=== PATIENT | female | born 1950 | race Caucasian/White ===

== ENCOUNTER 2016-03-16 21:26 | Emergency (ER) | payer MEDICARE, OTHER | END 2016-03-16 21:58 | disposition left against medical advice (07) | LOC: ER 21:26 | DX: Z53.21 Procedure and treatment not carried out due to patient leaving prior to being seen by health care provider (principal) ==

== ENCOUNTER 2016-12-16 11:51 | Emergency (ER) | payer MEDICARE, OTHER ==
--- NOTE | 2016-12-16 12:46 | ER Document Report ---
HPI - HPI Patient complains to provider of: Right-sided back pain, and right foot pain Onset: Other Onset/Duration: Sudden Quality of pain: Throbbing Severity: Severe Pain Level: 5 Context: Patient states that on Monday she was lifting a box and when she twisted at the waist to lay down she started experiencing right-sided back pain. Pain does not radiate down her legs. Patient denies loss of control of bowels or bladder. Patient stubbed her right toe last night in a dark room. Complains of pain and swelling. Did not fall and hit head. Associated Symptoms: None Exacerbated by: Movement Relieved by: Remaining still Similar symptoms previously: Yes Recently seen / treated by doctor: No - ROS ROS below otherwise negative: Yes Systems Reviewed and Negative: Yes All other systems reviewed and negative - CONSTITUTIONAL Constitutional: DENIES: Fever - EENT EENT: DENIES: Congestion - NEURO Neurology: DENIES: Headache - CARDIOVASCULAR Cardiovascular: DENIES: Chest pain - RESPIRATORY Respiratory: DENIES: Trouble Breathing - GASTROINTESTINAL Gastrointestinal: DENIES: Abdominal Pain - URINARY Urinary: DENIES: Dysuria - REPRODUCTIVE Reproductive: DENIES: : - MUSCULOSKELETAL Musculoskeletal: REPORTS: Extremity pain - Right fifth toe, Back Pain - Right side Past Medical History - General Information source: Patient - Social History Smoking Status: Never Smoker Frequency of alcohol use: Occasional Drug Abuse: None Lives with: Family Family History: Reviewed & Not Pertinent, Other - Negative for premature coronary artery disease, mom lived to 90, dad lived to 89 Patient has suicidal ideation: No Patient has homicidal ideation: No Pulmonary Medical History: Reports: Hx Asthma Psychiatric Medical History: Reports: Hx Anxiety, Hx Depression Past Surgical History: Reports: Hx Abdominal Surgery, Hx Hysterectomy - Immunizations Immunizations up to date: Yes Hx Diphtheria, Pertussis, Tetanus Vaccination: Yes Vertical Provider Document - CONSTITUTIONAL Agree With Documented VS: Yes Exam Limitations: No Limitations General Appearance: WD/WN, No Apparent Distress - INFECTION CONTROL TRAVEL OUTSIDE OF THE [place] IN LAST 30 DAYS: No - HEENT HEENT: Atraumatic, Normocephalic - RESPIRATORY Respiratory: Breath Sounds Normal, No Respiratory Distress O2 Sat by Pulse Oximetry: 98 - CARDIOVASCULAR Cardiovascular: Regular Rate, Regular Rhythm - GI/ABDOMEN Gastrointestinal: Abdomen Soft, Abdomen Non-Tender - BACK Notes: Nontender L-spine, patient does have right-sided paraspinal muscle tenderness on palpation. Pain reproduced with range of motion. No pain with leg raises. - MUSCULOSKELETAL/EXTREMETIES Musculoskeletal/Extremeties: Edema - Right fifth toe. negative: Eccymosis - NEURO Level of Consciousness: Awake, Alert, Appropriate - DERM Integumentary: Warm, Dry Course - Re-evaluation Re-evalutation: 12/16/16 13:12 X-rays negative and discussed with patient. - Vital Signs Vital signs: Temp Pulse Resp BP Pulse Ox 98.4 F 95 132/98 H 98 12/16/16 12:22 12/16/16 12:22 12/16/16 12:22 12/16/16 12:22 Discharge - Discharge Clinical Impression: Strain of muscle, fascia and tendon of lower back, initial encounter Right-sided back pain Qualifiers: Back pain location: low back pain Chronicity: acute Sciatica presence: without sciatica Qualified Code(s): M54.5 - Low back pain Condition: Good Disposition: HOME, SELF-CARE Additional Instructions: Ibuprofen for pain Muscle relaxers as prescribed ice packs to right toe, Keep elevated Follow-up with your doctor next week for recheck Return as needed Prescriptions: Cyclobenzaprine HCl [Flexeril 5 mg Tablet] 5 mg PO TID #15 tablet
--- NOTE | 2016-12-16 13:07 | RADIOLOGY REPORT (SQ) ---
EXAM DESCRIPTION: FOOT RIGHT COMPLETE COMPLETED DATE/TIME: 12/16/2016 12:56 pm REASON FOR STUDY: injury COMPARISON: None. NUMBER OF VIEWS: Three views. TECHNIQUE: AP, lateral and oblique radiographic images acquired of the right foot. LIMITATIONS: None. FINDINGS: MINERALIZATION: Normal. BONES: No acute fracture or dislocation. There is a bunion. Small plantar calcaneal spur is present . JOINTS: No effusions. SOFT TISSUES: No soft tissue swelling. No foreign body. OTHER: No other significant finding. IMPRESSION: No acute abnormality is seen. Findings as described. TECHNICAL DOCUMENTATION: JOB ID: [id number] [employer]- All Rights Reserved
[2016-12-16 13:55] VITALS: BP 130/80
== END 2016-12-16 13:37 | disposition home or self-care (01) ==
LOC: ER 11:51
DX: S39.012A Strain of muscle, fascia and tendon of lower back, initial encounter (principal); M79.671 Pain in right foot; X50.0XXA Overexertion from strenuous movement or load, initial encounter; W22.09XA Striking against other stationary object, initial encounter
CPT/HCPCS: 99283

== ENCOUNTER → 2017-03-29 | Outpatient (CLI) | payer MEDICARE, OTHER ==
--- NOTE | 2017-03-29 12:58 | WOMENS IMAGING REPORT ---
EXAM DESCRIPTION: BILAT SCREENING MAMMO W/CAD COMPLETED DATE/TIME: 03/29/2017 11:20 am REASON FOR STUDY: SCREENING MAMMO Z12.31 ENCNTR SCREEN MAMMOGRAM FOR MALIGNANT NEOPLASM OF RAZ COMPARISON: None. TECHNIQUE: Standard craniocaudal and mediolateral oblique views of each breast recorded using digita l acquisition. LIMITATIONS: None. FINDINGS: No masses, calcifications or architectural distortion. No areas of suspicion. Read with the assistance of CAD. .[facility] - R2 Cenova Version 1.3 .[facility] Imaging - R2 Cenova Version 1.3 .[facility] - R2 Cenova Version 2.4 .[facility] - R2 Cenova Version 2.4 .[facility] - R2 Beam Department Supervisor Version 9.2 IMPRESSION: NORMAL MAMMOGRAM. BIRADS 1. BREAST DENSITY: b. There are scattered areas of fibroglandular density. BIRAD: 1 NEGATIVE RECOMMENDATION: ROUTINE SCREENING COMMENT: The patient has been notified of the results by letter per SA requirements. Additional no tification policies are in place for contacting patient with suspicious or incomplete findings. Quality ID #[id number]: The [employer] recommends an annual screening mammogram for women aged 40 years or over. This facility utilizes a reminder system to ensure that all patients receive reminder letters, and/or direct phone calls for appointments. This includes reminders for routine scr eening mammograms, diagnostic mammograms, or other Breast Imaging Interventions when appropriate. Th is patient will be placed in the appropriate reminder system. The [employer] ([employer]) has developed recommendations for screening MRI of the breast s in certain patient populations, to be used in conjunction with mammography. Breast MRI surveillanc e may be appropriate for women with more than 20% lifetime risk of developing breast cancer as deter mined by genetic testing, significant family history of the disease, or history of mantle radiation f or Hodgkins Disease. ACR Practice Guidelines 2008. TECHNICAL DOCUMENTATION: FINDING NUMBER: (1) ASSESSMENT: (1) JOB ID: [id number] [employer]- All Rights Reserved
== END ==
LOC: WI 10:56
PROVIDERS: ATTEND Physician Assistant Medical
DX: Z12.31 Encounter for screening mammogram for malignant neoplasm of breast (principal)
CPT/HCPCS: 77067

== ENCOUNTER 2017-06-26 13:40 | Emergency (ER) | payer MEDICARE ==
[2017-06-26] MEDS ORDERED: IPRATROPIUM/ALBUTEROL 0.5-2.5 MG/3 ML AMPUL NEB ONE (15:07)
[2017-06-26] MEDS ORDERED: METHYLPREDNISOLONE INJ 125 MG/2 ML SDV IM ONE (15:07)
--- NOTE | 2017-06-26 15:13 | ER Document Report ---
ED General - General Chief Complaint: Flu Symptoms Stated Complaint: COUGH/FEVER Time Seen by Provider: 06/26/17 15:06 Mode of Arrival: Ambulatory Information source: Patient TRAVEL OUTSIDE OF THE [place] IN LAST 30 DAYS: No - HPI Notes: 66 yr old female with a hx of asthma and seasonal allergies presents today with c/o chills, felling "run-down", productive cough x 4 days. Denies any cp, sob, n /v/d. tried otc advil with some relief. cough is productive in nature. worse with time, nothing makes better. unable to see her pcp today. pain is 5/10, throbbing. decreased eating, but is drinking. Denies chest pain,palpitations, shortness of breath, dyspnea, nausea, vomiting, diarrhea, abdominal pain, hematuria, blurred vision, double vision, loss of vision, speech changes, LH, dizziness, syncope, headaches, wheezing, ST, URI, neck pain, weakness, bowel or bladder dysfunction, saddle anesthesia, numbness or tingling in bilateral upper or lower extremities equally, muscle paralysis, weakness in bilateral upper or lower extremities equally or rash. Denies IV drug use. - Related Data Allergies/Adverse Reactions: amoxicillin [Amoxicillin] Allergy (Verified 12/16/16 12:19) Sulfa (Sulfonamide Antibiotics) Allergy (Verified 12/16/16 12:19) Past Medical History - General Information source: Patient - Social History Smoking Status: Never Smoker Family History: Reviewed & Not Pertinent, Other - Negative for premature coronary artery disease, mom lived to 90, dad lived to 89 Pulmonary Medical History: Reports: Hx Asthma Renal/ Medical History: Denies: Hx Peritoneal Dialysis Psychiatric Medical History: Reports: Hx Anxiety, Hx Depression Past Surgical History: Reports: Hx Abdominal Surgery, Hx Hysterectomy - Immunizations Immunizations up to date: Yes Hx Diphtheria, Pertussis, Tetanus Vaccination: Yes Review of Systems - Review of Systems Constitutional: See HPI EENT: No symptoms reported Cardiovascular: No symptoms reported Respiratory: See HPI Gastrointestinal: No symptoms reported Genitourinary: No symptoms reported Female Genitourinary: No symptoms reported Musculoskeletal: No symptoms reported Skin: No symptoms reported Hematologic/Lymphatic: No symptoms reported Neurological/Psychological: No symptoms reported Physical Exam - Vital signs Vitals: Temp Pulse Resp BP Pulse Ox 98.4 F 89 16 126/72 H 98 06/26/17 14:15 06/26/17 14:15 06/26/17 14:15 06/26/17 14:15 06/26/17 14:15 - Notes Notes: PHYSICAL EXAMINATION: GENERAL: Well-appearing, well-nourished and in no acute distress. HEAD: Atraumatic, normocephalic. EYES: Pupils equal round and reactive to light, extraocular movements intact, conjunctiva are normal. ENT: TM intact with bilateral serous effusion, no erythema. Nares boggy bilaterally, oropharynx with erythema without exudates. Moist mucous membranes. NECK: Normal range of motion, supple without lymphadenopathy LUNGS: wheezing in BUE lobes equally, after breathing treatment, BS clear in all lobes blaterally and equally. HEART: Regular rate and rhythm without murmurs ABDOMEN: Soft, nontender, nondistended abdomen. No guarding, no rebound. No masses appreciated. Female : deferred Musculoskeletal: Normal range of motion, no pitting or edema. No cyanosis. NEUROLOGICAL: Cranial nerves grossly intact. Normal speech, normal gait. Normal sensory, motor exams PSYCH: Normal mood, normal affect. SKIN: Warm, Dry, normal turgor, no rashes or lesions noted. Course - Re-evaluation Re-evalutation: Presentation of a pt complaining of 66 yr old asthmatic female with concerns of pneumonia presents for evaluation of her fever and cough. no rapid progression of symptoms, systemic symptoms including weight loss, history of recent bacterial infection, bilateral symptoms, numbness, weakness, difficulty walking, urinary retention or bowel incontinence, personal history of cancer, immunosuppression, diabetes, known AAA , or history of IV drug use. rechecked the patient who is resting comfortably. Based on history and physical , I have a very low suspicion concerning of an etiology of pain including epidural compression syndrome, spinal infection, transverse myelitis, malignancy , abdominal aortic aneurysm, renal colic, acute lower extremity claudication, neurogenic claudication, ankylosing spondylitis, or other intra-abdominal process. on re-exam, patient is symptomatically improved. CXR NAD per RAD. Her breathing treatment resolved her wheezing. At this time will discharge with return precautions and follow-up recommendations. Verbal discharge instructions given a the bedside and opportunity for questions given. Medication warnings reviewed. Patient is in agreement with this plan and has verbalized understanding of return precautions and the need for primary care follow-up in the next 24-72 hours. After performing a Medical Screening Examination, I estimate there is LOW risk for ACUTE CORONARY SYNDROME, PULMONARY EMBOLI, RESPIRATORY FAILURE, SEPSIS OR MENINGITIS, thus I consider the discharge disposition reasonable. I have reevaluated this patient multiple times and no significant life threatening changes are noted. The patient and I have discussed the diagnosis and risks, and we agree with discharging home with close follow-up. We also discussed returning to the Emergency Department immediately if new or worsening symptoms occur. We have discussed the symptoms which are most concerning (e.g., changing or worsening pain, trouble swallowing or breathing, neck stiffness, fever) that necessitate immediate return. 06/26/17 16:03 - Vital Signs Vital signs: Temp Pulse Resp BP Pulse Ox 98.4 F 89 16 126/72 H 98 06/26/17 14:15 06/26/17 14:15 06/26/17 14:15 06/26/17 14:15 06/26/17 14:15 Discharge - Discharge Clinical Impression: Acute bacterial bronchitis Condition: Good Disposition: HOME, SELF-CARE Instructions: Fever ([facility]), Bronchitis ([facility]) Additional Instructions: Bronchitis You have acute bronchitis. This disease is an infection or inflammation of the air passageways in your lungs. Symptoms usually include cough, low grade fever, shortness of breath, and wheezing. The cough usually persists for a couple of weeks. Most cases of bronchitis get better without antibiotics. We prescribe antibiotics when we believe bacteria are damaging your airways, or if there's high risk the bronchitis will worsen into pneumonia. Increase your fluid intake. A cool mist humidifier may make your lungs more comfortable. An expectorant (cough medicine that loosens phlegm) can help. If you smoke, STOP!!! Recovery from bronchitis can be somewhat slow, but you should see improvement within a day or two. Repeated episodes of bronchitis may result in lung damage -- for example, chronic bronchitis, recurrent pneumonias, or emphysema. Call the doctor if you develop increasing fever, shortness of breath, chest pain, bloody sputum, or otherwise worsen. If you have not improved at all after several days, contact the physician. Return immediately for any new or worsening symptoms. Follow up with primary care provider, call tomorrow to make followup appointment. Prescriptions: Benzonatate [Tessalon Perle 100 mg Capsule] 100 mg PO Q8HP PRN #20 cap PRN Reason: Albuterol Sulfate [Ventolin Hfa] 1 - 2 puff IH Q4 PRN #1 hfa.aer.ad PRN Reason: Azithromycin 250 mg PO DAILY #6 tablet Prednisone 20 mg PO BID #10 tablet Referrals: EUGENIO SYKES MD [Primary Care Provider] - Follow up in 3-5 days
--- NOTE | 2017-06-26 16:02 | RADIOLOGY REPORT (SQ) ---
EXAM DESCRIPTION: CHEST 2 VIEWS COMPLETED DATE/TIME: 06/26/2017 3:53 pm REASON FOR STUDY: cough with fever COMPARISON: 10/26/2015. EXAM PARAMETERS: NUMBER OF VIEWS: two views TECHNIQUE: Digital Frontal and Lateral radiographic views of the chest acquired. RADIATION DOSE: NA LIMITATIONS: none FINDINGS: LUNGS AND PLEURA: No opacities, masses or pneumothorax. No pleural effusion. MEDIASTINUM AND HILAR STRUCTURES: No masses or contour abnormalities. HEART AND VASCULAR STRUCTURES: Heart normal size. No evidence for failure. BONES: No acute findings. HARDWARE: None in the chest. OTHER: No other significant finding. IMPRESSION: NO ACUTE RADIOGRAPHIC FINDING IN THE CHEST. TECHNICAL DOCUMENTATION: JOB ID: [id number] [employer]- All Rights Reserved Reading location - IP/workstation name: [email or web address]
[2017-06-26 16:09] VITALS: BP 132/76
== END 2017-06-26 16:11 | disposition home or self-care (01) ==
LOC: ER 13:40
DX: J20.8 Acute bronchitis due to other specified organisms (principal); B96.89 Other specified bacterial agents as the cause of diseases classified elsewhere; J45.909 Unspecified asthma, uncomplicated; R68.83 Chills (without fever); R05 Cough; R52 Pain, unspecified; Z88.0 Allergy status to penicillin; Z88.2 Allergy status to sulfonamides
CPT/HCPCS: 99283; 96372; 71046; J2930; A9270; J7620

== ENCOUNTER 2018-01-21 10:00 | Emergency (ER) | payer MEDICARE ==
[2018-01-21] MEDS ORDERED: OXYCODONE-ACETAMINOPHEN 5-325 MG TABLET PO ONE (10:33)
--- NOTE | 2018-01-21 10:45 | ER Document Report ---
ED Extremity Problem, Upper - General Chief Complaint: Shoulder Injury Stated Complaint: SHOULDER INJURY Time Seen by Provider: 01/21/18 10:23 Mode of Arrival: Ambulatory Information source: Patient Notes: Patient is 67-year-old female comes emergency room complaining of right shoulder pain. Patient states she was helping her son put up a privacy fence and patient went to let go but the son did not and as she took her arms away he let go in the fence fell on patient's right shoulder knocking her to the ground. This incident occurred yesterday evening. Patient wanted to wait to see if she got better but woke up this morning not able to move her right arm without severe pain. The area of injury is in the right anterior shoulder and is very tender to touch or even move. There was no other injuries no head trauma no loss of consciousness and patient is just here for her shoulder examination and something for pain. She also denies any other medical problems. TRAVEL OUTSIDE OF THE [place] IN LAST 30 DAYS: No - HPI Patient complains to provider of: Injury, Pain, Swelling, Shoulder Onset: Yesterday Recent injury: Yes Where: Home Quality of pain: Sharp, Stabbing, Throbbing Severity of pain: Severe, Persistent, Still present Pain Level: 4 Context: Blow Arm and Shoulder (Right): 1 - Area of pain discomfort and discoloration Associated symptoms: None Exacerbated by: Movement Relieved by: Rest, Positioning Similar symptoms previously: No Recently seen / treated by doctor: No - Related Data Allergies/Adverse Reactions: amoxicillin [Amoxicillin] Allergy (Verified 01/21/18 10:02) Sulfa (Sulfonamide Antibiotics) Allergy (Verified 01/21/18 10:02) Past Medical History - General Information source: Patient - Social History Smoking Status: Never Smoker Cigarette use (# per day): No Chew tobacco use (# tins/day): No Smoking Education Provided: No Frequency of alcohol use: None Drug Abuse: None Family History: Reviewed & Not Pertinent, Other - Negative for premature coronary artery disease, mom lived to 90, dad lived to 89 Patient has suicidal ideation: No Patient has homicidal ideation: No Pulmonary Medical History: Reports: Hx Asthma Renal/ Medical History: Denies: Hx Peritoneal Dialysis Psychiatric Medical History: Reports: Hx Anxiety, Hx Depression Past Surgical History: Reports: Hx Abdominal Surgery, Hx Hysterectomy - Immunizations Immunizations up to date: Yes Hx Diphtheria, Pertussis, Tetanus Vaccination: Yes Review of Systems - Review of Systems Constitutional: No symptoms reported EENT: No symptoms reported Cardiovascular: No symptoms reported Respiratory: No symptoms reported Gastrointestinal: No symptoms reported Genitourinary: No symptoms reported Female Genitourinary: No symptoms reported Musculoskeletal: See HPI, Joint pain, Muscle pain Skin: Change in color Hematologic/Lymphatic: No symptoms reported Neurological/Psychological: No symptoms reported -: Yes All other systems reviewed and negative Physical Exam - Vital signs Vitals: Temp Pulse Resp BP Pulse Ox 97.8 F 98 16 131/76 H 96 01/21/18 10:06 01/21/18 10:06 01/21/18 10:06 01/21/18 10:06 01/21/18 10:06 Interpretation: Normal - Notes Notes: PHYSICAL EXAMINATION: GENERAL: well-nourished and in no acute distress. Uncomfortable appearing HEAD: Atraumatic, normocephalic. EYES: Pupils equal round and reactive to light, extraocular movements intact, conjunctiva are normal. ENT: Nares patent, oropharynx clear without exudates. Moist mucous membranes. NECK: Normal range of motion, supple without lymphadenopathy LUNGS: Breath sounds clear to auscultation bilaterally and equal. No wheezes rales or rhonchi. HEART: Regular rate and rhythm without murmurs Female : deferred Musculoskeletal: Examination of patient's area of complaint is her right anterior shoulder area. Patient has ecchymosis extending from the mid clavicular area extending outward towards the shoulder anteriorly. And from just above the clavicle downward to axillary area. Same area is swollen and very tender to palpate. Examination of the shoulder is difficult because patient will not allow me to palpate the area very deeply and she will not allow me to raise her arm secondary to pain. She has a good microsoft bi developer strength on the right hand she has good flexion extension at the elbow she has no tenderness to palpation on the proximal humeral area. It is when you get to the AC space the patient starts having pain discomfort to palpation. Again she will not allow me to rotate or lift the arm. Patient also has good pulses distally in the radius and the ulna and good cap refill in the nailbeds of the right hand. NEUROLOGICAL: Cranial nerves grossly intact. Normal speech, normal gait. Normal sensory, motor exams PSYCH: Normal mood, normal affect. SKIN: Warm, Dry, normal turgor, no rashes or lesions noted. Course - Vital Signs Vital signs: Temp Pulse Resp BP Pulse Ox 97.8 F 98 16 131/76 H 96 01/21/18 10:06 01/21/18 10:06 01/21/18 10:06 01/21/18 10:06 01/21/18 10:06 Procedures - Immobilization Right Shoulder Pre-Proc Neuro Vasc Exam: Normal Immobilizer type: Shoulder immobilizer Performed by: PCT Post-Proc Neuro Vasc Exam: Normal, Unchanged from pre-exam Alignment checked and good: Yes Notes: 01/21/18 12:03 Patient was placed first in a sling and then was placed in a shoulder immobilizer by the patient primary care nurse practitioner I recheck to make sure it looked good it was in perfect position patient's arm was elevated to perfect angle she had less pain with using the shoulder immobilizer than she did with the sling itself. Checking her cap refill in the fingers while in the shoulder immobilizer so that she had good cap refill and she still had good pulses on the right wrist ulnar and radius. Discharge - Discharge Clinical Impression: Right clavicle fracture Qualifiers: Encounter type: initial encounter Clavicle location: shaft Fracture type: closed Fracture alignment: displaced Qualified Code(s): S42.021A - Displaced fracture of shaft of right clavicle, initial encounter for closed fracture Disposition: HOME, SELF-CARE Instructions: Oral Narcotic Medication ([facility]), Sling as Treatment ([facility]), Fractured Clavicle ([facility]) Additional Instructions: Home and use the shoulder immobilizer at all times. Careful with your going from sitting to standing or laying to standing up since you have this immobilizer on your to have balance issues. Also I am giving you pain medication so be careful with it he will make his swimmy headed and off balance you do not want to fall because you do not have anything to reach out and stop your fall with. I am giving you the name of the orthopedic yard goods salesperson today and contact his office to see if he can accommodate you. If you use our local orthopedic group here they will have access to the x-rays at their office. Today the orthopedic surgeon on-call is Dr. Celia Fletcher you must contact his office either tomorrow or Monday they can set you up an appointment. Ice to the area 3 times a day for 10-15 minutes. Return to ER if you have any concerns or problems. Prescriptions: Oxycodone HCl/Acetaminophen [Percocet 5-325 mg Tablet] 1 tab PO Q4H PRN #15 tablet PRN Reason: Referrals: EUGENIO SYKES MD [Primary Care Provider] - Follow up as needed
--- NOTE | 2018-01-21 11:31 | RADIOLOGY REPORT (SQ) ---
EXAM DESCRIPTION: CLAVICLE RIGHT; SHOULDER RIGHT 2 OR MORE VIEWS COMPLETED DATE/TIME: 01/21/2018 11:01 am REASON FOR STUDY: Fence fell on shoulder; Trauma fence fell on shoulder COMPARISON: Radiographs of the right shoulder, 02/14/2015, chest radiograph, 06/26/2017 NUMBER OF VIEWS: Two views of the right clavicle. Three views of the right shoulder. TECHNIQUE: Frontal and angled images were acquired of the right clavicle. Internal rotation, locomotive inspector al rotation, and axillary Y-views were acquired of the right shoulder. LIMITATIONS: None. FINDINGS: MINERALIZATION: Normal. BONES: There is a comminuted fracture of the distal third of the right clavicle, which appears to exh ibit some evidence of cortication and periosteal reaction suggesting a subacute fracture. The right shoulder and acromioclavicular joint are intact. SOFT TISSUES: No obvious swelling or foreign body. OTHER: No other significant finding. IMPRESSION: 1. There is a comminuted fracture of the distal third of the right clavicle, which appea rs to exhibit some evidence of cortication and periosteal reaction suggesting a subacute fracture. T his finding is at least new from prior examination dated 06/26/2017. Correlate with clinical history. 2. The right shoulder and acromioclavicular joint are intact. TECHNICAL DOCUMENTATION: JOB ID: [id number] [employer]- All Rights Reserved Reading location - IP/workstation name: [email or web address]
--- NOTE | 2018-01-21 11:31 | RADIOLOGY REPORT (SQ) ---
EXAM DESCRIPTION: CLAVICLE RIGHT; SHOULDER RIGHT 2 OR MORE VIEWS COMPLETED DATE/TIME: 01/21/2018 11:01 am REASON FOR STUDY: Fence fell on shoulder; Trauma fence fell on shoulder COMPARISON: Radiographs of the right shoulder, 02/14/2015, chest radiograph, 06/26/2017 NUMBER OF VIEWS: Two views of the right clavicle. Three views of the right shoulder. TECHNIQUE: Frontal and angled images were acquired of the right clavicle. Internal rotation, news internship al rotation, and axillary Y-views were acquired of the right shoulder. LIMITATIONS: None. FINDINGS: MINERALIZATION: Normal. BONES: There is a comminuted fracture of the distal third of the right clavicle, which appears to exh ibit some evidence of cortication and periosteal reaction suggesting a subacute fracture. The right shoulder and acromioclavicular joint are intact. SOFT TISSUES: No obvious swelling or foreign body. OTHER: No other significant finding. IMPRESSION: 1. There is a comminuted fracture of the distal third of the right clavicle, which appea rs to exhibit some evidence of cortication and periosteal reaction suggesting a subacute fracture. T his finding is at least new from prior examination dated 06/26/2017. Correlate with clinical history. 2. The right shoulder and acromioclavicular joint are intact. TECHNICAL DOCUMENTATION: JOB ID: [id number] [employer]- All Rights Reserved Reading location - IP/workstation name: [email or web address]
[2018-01-21 12:17] VITALS: BP 111/76
== END 2018-01-21 12:27 | disposition home or self-care (01) ==
LOC: ER 10:00
DX: S42.021A Displaced fracture of shaft of right clavicle, initial encounter for closed fracture (principal); M25.511 Pain in right shoulder; W51.XXXA Accidental striking against or bumped into by another person, initial encounter
CPT/HCPCS: 99283; 73000; 73030; L3650; A9270

== ENCOUNTER → 2018-11-12 | Outpatient (CLI) | payer MEDICARE, OTHER | LOC: LAB 08:35 | PROVIDERS: ATTEND Family Medicine | DX: Z01.83 Encounter for blood typing (principal) | CPT/HCPCS: 36415; 86900; 86901 ==

== ENCOUNTER → 2018-11-15 | Outpatient (CLI) | payer MEDICARE, OTHER ==
--- NOTE | 2018-11-15 13:45 | WOMENS IMAGING REPORT ---
EXAM DESCRIPTION: BILAT SCREENING MAMMO W/CAD COMPLETED DATE/TIME: 11/15/2018 11:09 am REASON FOR STUDY: Z12.31 SCREENING MAMMO Z12.31 ENCNTR SCREEN MAMMOGRAM FOR MALIGNANT NEOPLASM OF B RE COMPARISON: 2018 EXAM PARAMETERS: Standard craniocaudal and mediolateral oblique views of each breast recorded using digital acquisition. Read with the assistance of CAD. .[facility] - R2 Exercise Physiologist Certified Version 9.2 LIMITATIONS: None. FINDINGS: No suspicious masses, suspicious calcifications or architectural distortion. No areas of c oncern. IMPRESSION: Negative MAMMOGRAM. BIRADS 1 BREAST DENSITY: b. There are scattered areas of fibroglandular density. BIRAD: ASSESSMENT: 1 NEGATIVE RECOMMENDATION: ROUTINE SCREENING COMMENT: The patient has been notified of the results by letter per MQSA requirements. Additional no tification policies are in place for contacting patient with suspicious or incomplete findings. Quality ID #[id number]: The [employer] recommends an annual screening mammogram for women aged 40 years or over. This facility utilizes a reminder system to ensure that all patients receive reminder letters, and/or direct phone calls for appointments. This includes reminders for routine scr eening mammograms, diagnostic mammograms, or other Breast Imaging Interventions when appropriate. Th is patient will be placed in the appropriate reminder system. TECHNICAL DOCUMENTATION: FINDING NUMBER: (1) ASSESSMENT: (1) JOB ID: [id number] [employer]- All Rights Reserved Reading location - IP/workstation name: [email or web address]
== END ==
LOC: WI 10:30
PROVIDERS: ATTEND Family Medicine
DX: Z12.31 Encounter for screening mammogram for malignant neoplasm of breast (principal)
CPT/HCPCS: 77067

== ENCOUNTER 2019-04-27 15:20 | Observation (INO) | payer MEDICARE, OTHER ==
--- NOTE | 2019-04-27 16:06 | ER Document Report ---
ED Medical Screen (RME) - General Chief Complaint: Dog Bite Stated Complaint: DOG BITE Time Seen by Provider: 04/27/19 15:55 Primary Care Provider: MASON SHANNON DO [Primary Care Provider] - Follow up as needed TRAVEL OUTSIDE OF THE [place] IN LAST 30 DAYS: No - HPI Notes: 04/27/19 16:03 Patient is a 68-year-old female who presents complaining of dog bite to her left hand this past Monday resulting and erythema and pain to her left upper extremity since then. She did not seek medical attention thereafter. Tetanus was last updated within the last 5 years. She does have an allergy to amoxicillin/penicillins and sulfa antibiotics. No fever or chest pain. According to EMRA: I will use secondary IV meds with rocephin/flagyl IV. Other alt. based on allergies include clinda/cipro. Or to be adjusted per main side provider otherwise. I have treated and performed a rapid initial assessment of this patient. A comprehensive ED assessment and evaluation of the patient, analysis of test results and completion of medical decision making process will be conducted by additional ED providers. PHYSICAL EXAMINATION: GENERAL: Well-appearing, well-nourished and in no acute distress. A&Ox4. Answers questions appropriately. LUE: There are puncture wounds noted to the left posterior hand with warmth, tenderness, and erythema proximally to the elbow. - Related Data Allergies/Adverse Reactions: amoxicillin [Amoxicillin] Allergy (Verified 07/02/18 14:11) Sulfa (Sulfonamide Antibiotics) Allergy (Verified 07/02/18 14:11) Past Medical History Pulmonary Medical History: Reports: Hx Asthma Renal/ Medical History: Denies: Hx Peritoneal Dialysis Psychiatric Medical History: Reports: Hx Anxiety, Hx Depression Past Surgical History: Reports: Hx Abdominal Surgery, Hx Hysterectomy - Immunizations Immunizations up to date: Yes Hx Diphtheria, Pertussis, Tetanus Vaccination: Yes Physical Exam - Vital signs Vitals: Temp Pulse Resp BP Pulse Ox 97.8 F 85 16 111/61 100 04/27/19 15:39 04/27/19 15:39 04/27/19 15:39 04/27/19 15:39 04/27/19 15:39 Course - Vital Signs Vital signs: Temp Pulse Resp BP Pulse Ox 97.8 F 85 16 111/61 100 04/27/19 15:39 04/27/19 15:39 04/27/19 15:39 04/27/19 15:39 04/27/19 15:39 Doctor's Discharge - Discharge Referrals: MASON SHANNON DO [Primary Care Provider] - Follow up as needed
[2019-04-27 16:30] LABS: ABSOLUTE LYMPHOCYTES (AUTO) 1.2 10^3/uL (0.5-4.7); ABSOLUTE MONOCYTES (AUTO) 0.5 10^3/uL (0.1-1.4); ABSOLUTE NEUT (AUTO) 4.3 10^3/uL (1.7-8.2); BASOPHILS % (AUTO) 0.2 % (0-2); EOSINOPHILS % (AUTO) 0.2 % (0-6); HEMATOCRIT 35.9 % (36.0-47.0); HEMOGLOBIN 12.7 g/dL (12.0-15.5); LYMPHOCYTES % (AUTO) 19.7 % (13-45); MEAN CORPUSCULAR HEMOGLOBIN 32.7 pg (27.0-33.4); MEAN CORPUSCULAR HGB CONC 35.3 g/dL (32.0-36.0); MEAN CORPUSCULAR VOLUME 93 fl (80-97); MONOCYTES % (AUTO) 8.9 % (3-13); PLATELET COUNT 288 10^3/uL (150-450); RED BLOOD COUNT 3.88 10^6/uL (3.72-5.28); RED CELL DISTRIBUTION WIDTH 12.6 % (11.5-14.0); TOTAL CELLS COUNTED % (AUTO) 100 %
[2019-04-27 16:47] LABS: ALBUMIN 4.2 g/dL (3.5-5.0); ALKALINE PHOSPHATASE 70 U/L (38-126); ANION GAP 13 (5-19); ASPARTATE AMINO TRANSFERASE 22 U/L (14-36); BILIRUBIN,DIRECT 0.2 mg/dL (0.0-0.4); BILIRUBIN,TOTAL 0.6 mg/dL (0.2-1.3); BLOOD UREA NITROGEN 10 mg/dL (7-20); CALCIUM 9.1 mg/dL (8.4-10.2); CARBON DIOXIDE 26 mmol/L (22-30); CHLORIDE 89 mmol/L (98-107); GLUCOSE 92 mg/dL (75-110); POTASSIUM 3.3 mmol/L (3.6-5.0); TOTAL PROTEIN 7.4 g/dL (6.3-8.2)
--- NOTE | 2019-04-27 16:56 | RADIOLOGY REPORT (SQ) ---
EXAM DESCRIPTION: HAND LEFT 3 VIEWS COMPLETED DATE/TIME: 04/27/2019 4:27 pm REASON FOR STUDY: dog bite with secondary infection COMPARISON: None. EXAM PARAMETERS: NUMBER OF VIEWS: Three views. TECHNIQUE: AP, lateral and oblique radiographic images acquired of the left hand. LIMITATIONS: None. FINDINGS: MINERALIZATION: Normal. BONES: No acute fracture or dislocation. No cortical destruction or periosteal reaction. No worriso me bone lesions. JOINTS: No effusions. SOFT TISSUES: Dorsal hand soft tissue swelling. No foreign body. OTHER: No other significant finding. IMPRESSION: Dorsal hand soft tissue swelling without radiopaque foreign body. No acute osseous abno rmality. TECHNICAL DOCUMENTATION: JOB ID: [id number] [employer]- All Rights Reserved Reading location - IP/workstation name: [email or web address]
[2019-04-27] MEDS ORDERED: METRONIDAZOLE 500 MG/NS RTU 500 MG/100 ML RTUPB IV ONE (17:00)
[2019-04-27] MEDS ORDERED: CEFTRIAXONE 1 GM/D5W RTU 1 GM/50 ML RTUPB IV ONE (17:00)
[2019-04-27] MEDS ORDERED: RABIES IMMUNE GLOBULIN INJ/PF 300 UNIT/ML VIAL IM ONE (20:38)
[2019-04-27] MEDS ORDERED: RABIES VACCINE (PCEC)/PF 2.5 UNIT/1 ML KIT IM ONE (20:38)
--- NOTE | 2019-04-27 20:46 | ER Document Report ---
ED General - General Chief Complaint: Dog Bite Stated Complaint: DOG BITE Time Seen by Provider: 04/27/19 15:55 Primary Care Provider: MASON SHANNON DO [NO LOCAL MD] - Follow up as needed Notes: 5-year-old female presents emergency department stating that she was bitten by dog on her left hand on Monday. Patient states that it was not a dog who is known to her, it was strange to the neighborhood. Patient states that she did report the bite however they were unable to catch the dog and she does not know its vaccination status. Patient states the dog was chewing on a chicken bone and she tried to get him to come over so she could take it away from him. He then bit her left hand. Patient is right-hand dominant. Patient states immediately afterwards it was red but the redness has since extended all the way down her forearm to the level of her elbow. States that her fingers were swollen immediately afterwards but the swelling has actually decreased in her fingers but has increased in her hand and forearm. Denies any numbness or tingling, complains of intense pain when touching the dorsal aspect of her left hand. Complains of some drainage from her left hand. Patient is concerned that her fingers may be broken from the dog bite. Last tetanus vaccine was 5 years ago, she has not seen anybody for this injury yet. Did not receive any rabies vaccination. TRAVEL OUTSIDE OF THE [place] IN LAST 30 DAYS: No - Related Data Allergies/Adverse Reactions: amoxicillin [Amoxicillin] Allergy (Verified 04/27/19 16:21) Hives Sulfa (Sulfonamide Antibiotics) Allergy (Verified 07/02/18 14:11) Home Medications: Advair, Clonazepam, Fluticasone, Loratadine, Proair Past Medical History - General Information source: Patient - Social History Smoking Status: Never Smoker Frequency of alcohol use: Occasional Drug Abuse: None Family History: Reviewed & Not Pertinent Patient has suicidal ideation: No Patient has homicidal ideation: No Pulmonary Medical History: Reports: Hx Asthma Renal/ Medical History: Denies: Hx Peritoneal Dialysis Psychiatric Medical History: Reports: Hx Anxiety, Hx Depression Past Surgical History: Reports: Hx Abdominal Surgery, Hx Hysterectomy - Immunizations Immunizations up to date: Yes Hx Diphtheria, Pertussis, Tetanus Vaccination: Yes Review of Systems - Review of Systems Constitutional: No symptoms reported EENT: No symptoms reported Musculoskeletal: See HPI Skin: See HPI Neurological/Psychological: No symptoms reported -: Yes All other systems reviewed and negative Physical Exam - Vital signs Vitals: Temp Pulse Resp BP Pulse Ox 97.8 F 85 16 111/61 100 04/27/19 15:39 04/27/19 15:39 04/27/19 15:39 04/27/19 15:39 04/27/19 15:39 Interpretation: Normal - Notes Notes: GENERAL: Alert, interacts well. No acute distress. HEAD: Normocephalic, atraumatic EYES: Pupils equal, round and reactive to light, extraocular movements intact. ENT: Oral mucosa moist, tongue midline. NECK: Full range of motion, supple, trachea midline. LUNGS: No respiratory distress. EXTREMITIES: Moves all 4 extremities spontaneously, see skin exam for description of injury to left hand and arm. Radial pulses 2/4 bilaterally. No cyanosis. NEUROLOGICAL: Alert and oriented x3, normal speech. PSYCH: Normal mood, normal affect. SKIN: Warm, Dry, erythema extending from the MTP joint dorsally of the left hand all the way up to the elbow, minimal erythema to the palm. There is approximately 1 cm laceration to the skin between the second and third metacarpal dorsally on the left hand. Patient is able to flex and extend the fingers on her left hand although she is limited in both flexion and extension mildly in digits 2 3 and 4 on the left hand. Able to approximate her thumb and her ring finger as well as to make the okay sign on the left hand. Sensation is intact. Clear drainage is expressed from the wound to the dorsal aspect of the left hand with pressure, no purulent drainage noted, no fluctuance noted. Course - Re-evaluation Re-evalutation: 04/27/19 20:46 CBC unremarkable, CMP shows chronically low sodium relatively unchanged since 2016, patient is aware of this, hand x-ray reveals soft tissue swelling but no foreign body, fracture or subcu emphysema. No evidence of abscess on my examination. Patient has hand and forearm cellulitis from a dog bite, this will require IV antibiotics as well as rabies vaccination. Patient will be discussed with hospitalist Dr. Reyes for possible admission. Patient has been started on Rocephin and Flagyl given her allergy to sulfa drugs and amoxicillin. 04/27/19 20:58 Agrees to admit the patient in observation status for IV antibiotics. - Vital Signs Vital signs: Temp Pulse Resp BP Pulse Ox 97.8 F 85 16 111/61 100 04/27/19 15:39 04/27/19 15:39 04/27/19 15:39 04/27/19 15:39 04/27/19 15:39 - Laboratory Result Diagrams: 04/27/19 16:18 04/27/19 16:18 Laboratory results interpreted by me: 04/27/19 04/27/19 16:18 16:18 Hct 35.9 L Sodium 127.5 L Potassium 3.3 L Chloride 89 L Creatinine 0.49 L Discharge - Discharge Clinical Impression: Cellulitis of left hand excluding fingers and thumb Dog bite of left hand Qualifiers: Encounter type: initial encounter Qualified Code(s): S61.452A - Open bite of l eft hand, initial encounter; W54.0XXA - Bitten by dog, initial encounter Condition: Stable Disposition: ADMITTED OBSERVATION Admitting Provider: Amy (Hospitalist) Unit Admitted: Medical Floor Referrals: MASON SHANNON DO [NO LOCAL MD] - Follow up as needed
[2019-04-28] MEDS ORDERED: LEVALBUTEROL HCL NEB 0.63 MG/3 ML AMPUL NEB PRN (00:36)
[2019-04-28] MEDS ORDERED: MAG HYDROX/AL HYDROX/SIMETH SUSP 30 ML UDCUP PO PRN (00:36)
[2019-04-28] MEDS ORDERED: PROMETHAZINE HCL INJ 25 MG/1 ML VIAL IV PRN (00:36)
[2019-04-28] MEDS ORDERED: IBUPROFEN 800 MG TABLET PO PRN (00:40)
[2019-04-28] MEDS ORDERED: ACETAMINOPHEN 325 MG TABLET PO PRN (00:40)
[2019-04-28] MEDS ORDERED: HYDROMORPHONE HCL INJ/PF 2 MG/ML AMPULE IV PRN (00:40)
[2019-04-28] MEDS ORDERED: LORAZEPAM INJ 2 MG/1 ML VIAL IV PRN (00:40)
[2019-04-28] MEDS ORDERED: MELATONIN 5 MG TABLET PO PRN (00:41)
[2019-04-28] MEDS ORDERED: INFLUENZA QUAD (6MOS+) 2019-20 VAC 0.5 ML SYR IM ONE (00:51)
--- NOTE | 2019-04-28 01:52 | PDOC H&P ---
History of Present Illness Admission Date/PCP: 04/27/19 21:06 Martell Greene MD Patient complains of: Dog bite History of Present Illness: TERENCE LADD is a 68 year old female who presented to the emergency room with a dog bite injury which occurred on 04/23/2019. Patient states that she spotted a dog unknown to her chewing on a chicken bone and she made an attempt to take the chicken bone away from the dog in hopes of preventing the dog from being harmed by the bone. In her effort to perform this task the dog bit her left (nondominant) hand. She reported the incident to animal control and efforts to find the dog were fruitless. She did not seek medical help until today. She admits that she noticed redness and swelling of her left hand and fingers immediately after the dog bite and the redness and swelling of the hand persisted but the swelling of her fingers has improved. The hand has gradually become more painful (moderate throbbing/aching) with movement/use and she has noted a small amount of purulent drainage from the bite wound. Over the last 24 hours she has noted redness and swelling extending to her wrist and distal forearm with red streaks ascending up her left forearm to her elbow. She denies other associated or accompanying signs and symptoms. She denies prior similar episodes. She has not identified any additional aggravating or ameliorating factors for her dog bite injury. In the emergency room she was found to be afebrile and to have an unremarkable CBC. She was noted to have mild hyponatremia which is chronic and a mild hypo-kalemia. She was given her initial rabies vaccination and rabies immunoglobulin in the ER. Recommendation, based on the lack of constitutional symptoms and comorbidities, that the patient be given initial IV antibiotic therapy in the ER and then be treated with oral antibiotics on an outpatient basis was rejected by the emergency room physician. Patient was subsequently admitted to observation status for further evaluation treatment. Past Medical History Cardiac Medical History: Denies: Atrial Fibrillation, Congestive Heart Failure, Coronary Artery Disease, DVT, Myocardial Infarction, Hyperlipidema, Hypertension, Peripheral Vascular Disease, Pulmonary Embolism Pulmonary Medical History: Reports: Asthma, Bronchitis Denies: Chronic Obstructive Pulmonary Disease (COPD), Pneumonia, Respiratory Failure EENT Medical History: Denies: Cataracts, Ears - Hearing aids Neurological Medical History: Denies: Hemorrhagic CVA, Ischemic CVA, Seizures Endocrine Medical History: Denies: Diabetes Mellitus Type 1, Diabetes Mellitus Type 2, Hyperthyroidism, Hypothyroidism Renal/ Medical History: Denies: Chronic Kidney Disease, Nephrolithiasis Malignancy Medical History: Reports: None GI Medical History: Denies: Cirrhosis, Crohn's Disease, Gastroesophageal Reflux Disease, Hepatitis, Peptic Ulcer Disease, Ulcerative Colitis Musculoskeltal Medical History: Denies: Arthritis, Gout Skin Medical History: Denies: Eczema, Psoriasis Psychiatric Medical History: Reports: Depression, General Anxiety Disorder Denies: Alcohol Dependency, Substance Abuse, Tobacco Dependency Traumatic Medical History: Reports: None Hematology: Denies: Anemia, Bleeding Tendencies Infectious Medical History: Reports: None Past Surgical History Past Surgical History: Reports: Hysterectomy, Other - Abdominal surgery Social History Information Source: Patient Lives with: Family Smoking Status: Never Smoker Electronic Cigarette use?: No Frequency of Alcohol Use: Rare Hx Recreational Drug Use: No Drugs: None Hx Prescription Drug Abuse: No - Advance Directive Resuscitation Status: Full Code Surrogate healthcare decision maker:: Mary Anne Ladd Family History Family History: denies: CAD, DM, Hypertension, Malignancy Parental Family History Reviewed: Yes Children Family History Reviewed: No Sibling(s) Family History Reviewed.: Yes Medication/Allergy Home Medications: Aripiprazole [Abilify 10 mg Tablet] 10 mg PO DAILY 12/23/12 Clonazepam [Klonopin 0.5 mg Tablet] 0.5 mg PO 12/23/12 Diazepam [Valium 5 Mg Tablet] 5 mg PO Q8HP PRN #10 tablet 12/23/12 Fluticasone Propionate [Flonase Nasal [place] 50 Mcg/[place] 16 gm] 2 spray NASL Q12 12/23/12 Fluticasone/Salmeterol [Advair 100-50 Diskus 28 Dose] 1 inh IH Q12H 12/23/12 Guaifenesin [Mucinex] 600 mg PO 12/23/12 Oxycodone HCl/Acetaminophen [Percocet 5-325 mg Tablet] 1 - 2 tab PO ASDIR PRN #20 tablet 12/23/12 Mupirocin Calcium [Bactroban 2% Cream 15 gm] 1 applic TP DAILY PRN #1 tube 12/19/13 Oxycodone HCl/Acetaminophen [Percocet 5-325 mg Tablet] 1 tab PO Q4H PRN #20 tablet 12/19/13 Ondansetron [Zofran Odt 4 mg Tablet] 1 - 2 tab PO Q4H PRN #15 tab.rapdis 02/14/15 Prochlorperazine Maleate [Compazine 10 mg Tablet] 10 mg PO ASDIR PRN #10 tablet 02/14/15 Cyclobenzaprine HCl [Flexeril 10 mg Tablet] 10 mg PO TIDP PRN #15 tab 08/27/15 Hydrocodone/Acetaminophen [[place] 5-325 Tablet] 1 each PO Q6 #15 tablet 08/27/15 Prednisone 20 mg PO DAILY #15 tablet 08/27/15 Cyclobenzaprine HCl [Flexeril 5 mg Tablet] 5 mg PO TID #15 tablet 12/16/16 Albuterol Sulfate [Ventolin Hfa] 1 - 2 puff IH Q4 PRN #1 hfa.aer.ad 06/26/17 Azithromycin 250 mg PO DAILY #6 tablet 06/26/17 Benzonatate [Tessalon Perle 100 mg Capsule] 100 mg PO Q8HP PRN #20 cap 06/26/17 Prednisone 20 mg PO BID #10 tablet 06/26/17 Oxycodone HCl/Acetaminophen [Percocet 5-325 mg Tablet] 1 tab PO Q4H PRN #15 tablet 01/21/18 Hydroxyzine HCl [Atarax 25 mg Tablet] 1 - 2 tab PO QID #25 tablet 07/02/18 Prednisone [Sterapred] 5 mg PO ASDIR PRN 6 Days #1 tab.ds.pk 07/02/18 Ranitidine HCl 75 mg PO BID 14 Days #28 cap 07/02/18 Allergies/Adverse Reactions: amoxicillin [Amoxicillin] Allergy (Verified 04/27/19 16:21) Hives Sulfa (Sulfonamide Antibiotics) Allergy (Verified 07/02/18 14:11) Review of Systems Constitutional: ABSENT: chills, fever(s) Eyes: ABSENT: visual disturbances, other - Eye pain Ears: ABSENT: hearing changes, other - Ear pain Nose, Mouth, and Throat: ABSENT: mouth pain, sore throat Cardiovascular: ABSENT: chest pain, palpitations Respiratory: ABSENT: cough, dyspnea Gastrointestinal: ABSENT: abdominal pain, constipation, diarrhea, nausea, vomiting Genitourinary: ABSENT: dysuria, hematuria Musculoskeletal: ABSENT: back pain, joint swelling Integumentary: PRESENT: as per HPI, erythema, wounds. ABSENT: pruritus, rash Neurological: ABSENT: confusion, convulsions, focal weakness, memory loss, syncope Psychiatric: ABSENT: anxiety, depression Endocrine: ABSENT: cold intolerance, heat intolerance, polydipsia, polyphagia, polyuria Hematologic/Lymphatic: ABSENT: easy bleeding, easy bruising Allergic/Immunologic: ABSENT: seasonal rhinorrhea Physical Exam Vital Signs: Temp Pulse Resp BP Pulse Ox 97.8 F 85 16 111/61 100 04/27/19 15:39 04/27/19 15:39 04/27/19 15:39 04/27/19 15:39 04/27/19 15:39 Intake & Output 04/25/19 04/26/19 04/27/19 23:59 23:59 23:59 Intake Total 150 Balance 150 Weight 80.5 kg General appearance: PRESENT: no acute distress, cooperative Head exam: PRESENT: atraumatic, normocephalic Eye exam: PRESENT: conjunctiva pink. ABSENT: conjunctival injection, scleral icterus Ear exam: PRESENT: normal external ear exam. ABSENT: bleeding, drainage Mouth exam: PRESENT: dry mucosa, neck supple Neck exam: ABSENT: thyromegaly, tracheal deviation Respiratory exam: PRESENT: clear to auscultation lady, symmetrical, unlabored Cardiovascular exam: PRESENT: RRR. ABSENT: clicks, gallop, rubs Pulses: PRESENT: normal radial pulses, normal dorsalis pedis pul Vascular exam: PRESENT: normal capillary refill. ABSENT: pallor GI/Abdominal exam: PRESENT: normal bowel sounds, soft. ABSENT: tenderness Rectal exam: PRESENT: deferred Extremities exam: ABSENT: joint swelling, pedal edema Musculoskeletal exam: PRESENT: ambulatory, tenderness - Left hand and wrist. ABSENT: deformity, dislocation Neurological exam: PRESENT: alert, oriented to person, oriented to place, oriented to time, oriented to situation, CN II-XII grossly intact. ABSENT: motor sensory deficit Psychiatric exam: PRESENT: appropriate affect, normal mood Skin exam: PRESENT: dry, erythema - Erythema and edema of the left hand and distal forearm is noted. There is noted to be tenderness to palpation and movement of the left hand and wrist. Lymphangitis is noted to be present extend ing up to the level of the left elbow., warm. ABSENT: jaundice, rash, urticaria Results Laboratory Results: 04/27/19 16:18 04/27/19 16:18 04/27/19 04/27/19 16:18 16:18 WBC 6.0 RBC 3.88 Hgb 12.7 Hct 35.9 L MCV 93 MCH 32.7 MCHC 35.3 RDW 12.6 Plt Count 288 Seg Neutrophils % 71.0 Sodium 127.5 L Potassium 3.3 L Chloride 89 L Carbon Dioxide 26 Anion Gap 13 BUN 10 Creatinine 0.49 L Est GFR ( Amer) > 60 Glucose 92 Calcium 9.1 Total Bilirubin 0.6 AST 22 Alkaline Phosphatase 70 Total Protein 7.4 Albumin 4.2 Impressions: Hand X-Ray 04/27/19 16:06 IMPRESSION: Dorsal hand soft tissue swelling without radiopaque foreign body. No acute osseous abnormality. Assessment and Plan - Diagnosis (1) Cellulitis of left hand excluding fingers and thumb Is this a current diagnosis for this admission?: Yes (2) Cellulitis with lymphangitis Is this a current diagnosis for this admission?: Yes (3) Dog bite of left hand Qualifiers: Encounter type: initial encounter Qualified Code(s): S61.452A - Open bite of left hand, initial encounter; W54.0XXA - Bitten by dog, initial encounter Is this a current diagnosis for this admission?: Yes (4) Acute hypokalemia Is this a current diagnosis for this admission?: Yes (5) Asthma dependent on inhaled steroids Is this a current diagnosis for this admission?: Yes (6) Chronic hyponatremia Is this a current diagnosis for this admission?: Yes (7) Generalized anxiety disorder with panic attacks Is this a current diagnosis for this admission?: Yes (8) Dysthymia Is this a current diagnosis for this admission?: Yes - Plan Summary Summary: Patient is admitted to the medical floor on observation status for routine supportive and symptomatic cares. She will receive initial IV antibiotic therapy followed by oral antibiotics. She will receive oral potassium repletion. She will be continued on her usual medications for her chronic medical problems. A CBC and metabolic profile be rechecked in the morning. Patient will use Dilaudid 0.5 to 2 mg IV every 3 hours as needed for pain con trol. If patient maintains a satisfactory response to oral antibiotic therapy I would anticipate discharge on 04/28/2019. - Time Time Spent with patient: 15-24 minutes Medications reviewed and adjusted accordingly: Yes Anticipated discharge: Home - Inpatient Certification Based on my medical assessment, after consideration of the patient's comorbidities, presenting symptoms, or acuity I expect that the services needed warrant INPATIENT care.: No I certify that my determination is in accordance with my understanding of Medicare's requirements for reasonable and necessary INPATIENT services [42 CFR 412.3e].: No
[2019-04-28] MEDS: HEPARIN SOD (PORCINE) 5,000 UNIT/ML 1 ML VIAL SUBCUT SCH ×4 (02:15→21:10)
[2019-04-28 06:24] LABS: ANION GAP 10 (5-19); BLOOD UREA NITROGEN 9 mg/dL (7-20); CARBON DIOXIDE 24 mmol/L (22-30); CHLORIDE 95 mmol/L (98-107); GLUCOSE 98 mg/dL (75-110)
[2019-04-28] MEDS: IPRATROPIUM BROMIDE 0.02% NEB 0.5 MG/2.5 ML AMPUL NEB SCH ×2 (08:31→16:03)
[2019-04-28] MEDS: BUDESONIDE NEB 0.5 MG/2 ML AMPUL NEB SCH ×3 (08:31→19:53)
[2019-04-28] MEDS: LEVALBUTEROL HCL NEB 1.25 MG/3 ML AMPUL NEB SCH ×2 (08:31→16:03)
[2019-04-28] MEDS: FAMOTIDINE 20 MG TABLET PO SCH ×2 (09:56→21:10)
[2019-04-28] MEDS: DOCUSATE SODIUM 100 MG CAPSULE PO SCH ×2 (09:56→17:43)
[2019-04-28] MEDS: POTASSIUM CHLORIDE 10 MEQ TABLET.ER PO SCH (09:58)
[2019-04-28] MEDS ORDERED: LEVOFLOXACIN 750 MG TABLET PO SCH (10:00)
[2019-04-28 10:36] LABS: ABSOLUTE MONOCYTES (AUTO) 0.5 10^3/uL (0.1-1.4); ABSOLUTE NEUT (AUTO) 2.5 10^3/uL (1.7-8.2); HEMOGLOBIN 12.5 g/dL (12.0-15.5); TOTAL CELLS COUNTED % (AUTO) 100 %
[2019-04-28 10:40] LABS: ABSOLUTE LYMPHOCYTES (AUTO) 1.2 10^3/uL (0.5-4.7); BASOPHILS % (AUTO) 0.7 % (0-2); EOSINOPHILS % (AUTO) 0.4 % (0-6); HEMATOCRIT 34.4 % (36.0-47.0); LYMPHOCYTES % (AUTO) 29.4 % (13-45); MEAN CORPUSCULAR HEMOGLOBIN 33.4 pg (27.0-33.4); MEAN CORPUSCULAR HGB CONC 36.3 g/dL (32.0-36.0); MEAN CORPUSCULAR VOLUME 92 fl (80-97); MONOCYTES % (AUTO) 11.4 % (3-13); PLATELET COUNT 272 10^3/uL (150-450); RED BLOOD COUNT 3.74 10^6/uL (3.72-5.28); RED CELL DISTRIBUTION WIDTH 12.6 % (11.5-14.0); SEGMENTED NEUTROPHILS % (AUTO) 58.1 % (42-78); WHITE BLOOD COUNT 4.2 10^3/uL (4.0-10.5)
--- NOTE | 2019-04-28 12:50 | PDOC PROGRESS REPORT ---
Subjective Progress Note for:: 04/28/19 Reason For Visit: ACUTE CELLULITIS WITH LYMPHANGITIS 04/28/2019 Dog bite, cellulitis, hyponatremia Physical Exam Vital Signs: Temp Pulse Resp BP Pulse Ox 98.5 F 70 16 137/56 H 98 04/28/19 03:56 04/28/19 08:30 04/28/19 08:30 04/28/19 03:56 04/28/19 08:30 Intake & Output 04/27/19 04/28/19 04/29/19 06:59 06:59 06:59 Intake Total 350 Balance 350 Weight 80.5 kg General appearance: PRESENT: no acute distress, well-developed, well-nourished Respiratory exam: PRESENT: clear to auscultation lady. ABSENT: rales, rhonchi, wheezes Cardiovascular exam: PRESENT: RRR. ABSENT: diastolic murmur, rubs, systolic murmur Extremities exam: PRESENT: joint swelling, tenderness, +1 edema, other - Dorsum of the left hand appears to be red and edematous. This extends up to the elbow. Still good distal pulses. Neurovascular intact Neurological exam: PRESENT: alert, awake, oriented to person, oriented to place, oriented to time, oriented to situation, CN II-XII grossly intact. ABSENT: motor sensory deficit Psychiatric exam: PRESENT: appropriate affect, normal mood. ABSENT: homicidal ideation, suicidal ideation Results Laboratory Results: 04/28/19 04:50 04/28/19 04:50 04/27/19 04/27/19 04/28/19 16:18 16:18 04:50 WBC 6.0 RBC 3.88 Hgb 12.7 Hct 35.9 L MCV 93 MCH 32.7 MCHC 35.3 RDW 12.6 Plt Count 288 Seg Neutrophils % 71.0 Sodium 127.5 L 128.9 L Potassium 3.3 L 4.0 Chloride 89 L 95 L Carbon Dioxide 26 24 Anion Gap 13 10 BUN 10 9 Creatinine 0.49 L 0.45 L Est GFR ( Amer) > 60 > 60 Glucose 92 98 Calcium 9.1 9.0 Magnesium 2.3 Total Bilirubin 0.6 AST 22 Alkaline Phosphatase 70 Total Protein 7.4 Albumin 4.2 04/28/19 04:50 WBC 4.2 RBC 3.74 Hgb 12.5 Hct 34.4 L MCV 92 MCH 33.4 MCHC 36.3 H RDW 12.6 Plt Count 272 Seg Neutrophils % 58.1 Sodium Potassium Chloride Carbon Dioxide Anion Gap BUN Creatinine Est GFR ( Amer) Glucose Calcium Magnesium Total Bilirubin AST Alkaline Phosphatase Total Protein Albumin Impressions: Hand X-Ray 04/27/19 16:06 IMPRESSION: Dorsal hand soft tissue swelling without radiopaque foreign body. No acute osseous abnormality. Assessment and Plan - Diagnosis (1) History of hyponatremia Is this a current diagnosis for this admission?: Yes (2) Cellulitis of left hand excluding fingers and thumb Is this a current diagnosis for this admission?: Yes (3) Cellulitis with lymphangitis Is this a current diagnosis for this admission?: Yes (4) Dog bite of left hand Qualifiers: Encounter type: initial encounter Qualified Code(s): S61.452A - Open bite of left hand, initial encounter; W54.0XXA - Bitten by dog, initial encounter Is this a current diagnosis for this admission?: Yes - Plan Summary Summary: Patient is admitted to the medical floor on observation status for routine supportive and symptomatic cares. She will receive initial IV antibiotic therapy followed by oral antibiotics. She will receive oral potassium repletion. She will be continued on her usual medications for her chronic medical problems. A CBC and metabolic profile be rechecked in the morning. Patient will use Dilaudid 0.5 to 2 mg IV every 3 hours as needed for pain control. If patient maintains a satisfactory response to oral antibiotic therapy I would anticipate discharge on 04/28/2019. 04/28/2019 Patient is afebrile, pulse is 70 blood pressure 137/56 Patient's white count remains stable, 4.2 Sodium is up slightly 128.9 potassium up 4.0 renal functions normal Blood cultures pending Patient's hand is still red and swollen and I think that it would be best to go ahead and give her several doses of IV antibiotics. DC the Levaquin and started her on clindamycin 3 times daily. If she does well I will discharge her home tomorrow on p.o. clindamycin Also going to add a K pad to her left hand and keep it more elevated than she has been doing - Time Time Spent with patient: 25-34 minutes
[2019-04-28] MEDS: CLINDAMYCIN 600 MG/D5W RTU 600 MG/50 ML RTUPB IV SCH ×2 (13:37→21:09)
[2019-04-29] MEDS: LEVALBUTEROL HCL NEB 1.25 MG/3 ML AMPUL NEB SCH ×2 (00:17→08:39)
[2019-04-29] MEDS: IPRATROPIUM BROMIDE 0.02% NEB 0.5 MG/2.5 ML AMPUL NEB SCH ×2 (00:17→08:39)
[2019-04-29] MEDS: HEPARIN SOD (PORCINE) 5,000 UNIT/ML 1 ML VIAL SUBCUT SCH (05:32)
[2019-04-29] MEDS: CLINDAMYCIN 600 MG/D5W RTU 600 MG/50 ML RTUPB IV SCH (05:33)
[2019-04-29] MEDS: BUDESONIDE NEB 0.5 MG/2 ML AMPUL NEB SCH (08:39)
[2019-04-29 08:45] VITALS: BP 116/65
[2019-04-29] MEDS: POTASSIUM CHLORIDE 10 MEQ TABLET.ER PO SCH (09:21)
[2019-04-29] MEDS: FAMOTIDINE 20 MG TABLET PO SCH (09:21)
[2019-04-29] MEDS: DOCUSATE SODIUM 100 MG CAPSULE PO SCH (09:21)
--- NOTE | 2019-04-29 15:57 | PDOC DISCHARGE SUMMARY ---
Impression - Admit/DC Date/PCP Admission Date/Primary Care Provider: 04/27/19 21:06 WILLIAM KRAUS MD Discharge Date: 04/29/19 - Discharge Diagnosis (1) History of hyponatremia Is this a current diagnosis for this admission?: Yes (2) Cellulitis of left hand excluding fingers and thumb Is this a current diagnosis for this admission?: Yes (3) Cellulitis with lymphangitis Is this a current diagnosis for this admission?: Yes (4) Dog bite of left hand Is this a current diagnosis for this admission?: Yes - Assessment Summary: Patient is admitted to the medical floor on observation status for routine supportive and symptomatic cares. She will receive initial IV antibiotic therapy followed by oral antibiotics. She will receive oral potassium repletion. She will be continued on her usual medications for her chronic medical problems. A CBC and metabolic profile be rechecked in the morning. Patient will use Dilaudid 0.5 to 2 mg IV every 3 hours as needed for pain control. If patient maintains a satisfactory response to oral antibiotic th kendra I would anticipate discharge on 04/28/2019. 04/28/2019 Patient is afebrile, pulse is 70 blood pressure 137/56 Patient's white count remains stable, 4.2 Sodium is up slightly 128.9 potassium up 4.0 renal functions normal Blood cultures pending Patient's hand is still red and swollen and I think that it would be best to go ahead and give her several doses of IV antibiotics. DC the Levaquin and started her on clindamycin 3 times daily. If she does well I will discharge her home tomorrow on p.o. clindamycin Also going to add a K pad to her left hand and keep it more elevated than she has been doing 04/29/2019 Patient's hand looks much better today patient feels better today She is being discharged home on clindamycin 300 mg 3 times daily for 10 days She is going to continue warm compresses daily as well as warm water soaks 3 times a day Patient will continue on her rabies series Patient will follow-up with her primary care provider for a wound check and 24 to 48 hours Patient remains afebrile pulse of 73 blood pressure 116/65 White blood cell count is still normal 4.2 - Additional Information Resuscitation Status: Full Code Discharge Diet: As Tolerated Discharge Activity: Activity As Tolerated, No Lifting Over 10 Pounds, No Lifting/Push/Pulling Referrals: MASON SHANNON DO [NO LOCAL MD] - 05/09/19 4:00 pm Prescriptions: Clindamycin HCl 300 mg PO Q8 10 Days #30 capsule Home Medications: Albuterol Sulfate [Proair HFA Inhalation Aerosol 8.5 gm MDI] 2 puff IH Q4 PRN 04/28/19 Aripiprazole 5 mg PO DAILY 04/28/19 Clonazepam [Klonopin 1 mg Tablet] 1 mg PO BID 04/28/19 Fluticasone Propionate [Flonase Allergy Relief] 1 spray NS BID 04/28/19 Fluticasone/Salmeterol [Advair 100-50 Diskus 14 Dose/Diskus] 1 puff PO BID 04/28/19 Venlafaxine HCl [Venlafaxine HCl ER] 150 mg PO BID 04/28/19 Acetaminophen [Tylenol 325 mg Tablet] 650 mg PO Q4HP PRN tablet 04/29/19 Clindamycin HCl 300 mg PO Q8 10 Days #30 capsule 04/29/19 Docusate Sodium [Colace 100 mg Capsule] 100 mg PO BID capsule 04/29/19 Ibuprofen [Motrin 800 mg Tablet] 800 mg PO Q6HP PRN tablet 04/29/19 History of Present Illiness History of Present Illness: TERENCE PATIÑO is a 68 year old female Physical Exam Vital Signs: Temp Pulse Resp BP Pulse Ox 98.3 F 73 17 116/65 95 04/29/19 10:13 04/29/19 10:13 04/29/19 10:13 04/29/19 08:04 04/29/19 10:13 Intake & Output 04/28/19 04/29/19 04/30/19 06:59 06:59 06:59 Intake Total 350 1080 Balance 350 1080 Weight 80.5 kg 80.3 kg Results Laboratory Results: WBC 4.2 10^3/uL (4.0-10.5) 04/28/19 04:50 RBC 3.74 10^6/uL (3.72-5.28) 04/28/19 04:50 Hgb 12.5 g/dL (12.0-15.5) 04/28/19 04:50 Hct 34.4 % (36.0-47.0) L 04/28/19 04:50 MCV 92 fl (80-97) 04/28/19 04:50 MCH 33.4 pg (27.0-33.4) 04/28/19 04:50 MCHC 36.3 g/dL (32.0-36.0) H 04/28/19 04:50 RDW 12.6 % (11.5-14.0) 04/28/19 04:50 Plt Count 272 10^3/uL (150-450) 04/28/19 04:50 Lymph % (Auto) 29.4 % (13-45) 04/28/19 04:50 [place] % (Auto) 11.4 % (3-13) 04/28/19 04:50 Eos % (Auto) 0.4 % (0-6) 04/28/19 04:50 Baso % (Auto) 0.7 % (0-2) 04/28/19 04:50 Absolute Neuts (auto) 2.5 10^3/uL (1.7-8.2) 04/28/19 04:50 Absolute Lymphs (auto) 1.2 10^3/uL (0.5-4.7) 04/28/19 04:50 Absolute Monos (auto) 0.5 10^3/uL (0.1-1.4) 04/28/19 04:50 Absolute Eos (auto) 0.0 10^3/uL (0.0-0.6) 04/28/19 04:50 Absolute Basos (auto) 0.0 10^3/uL (0.0-0.2) 04/28/19 04:50 Seg Neutrophils % 58.1 % (42-78) 04/28/19 04:50 Sodium 128.9 mmol/L (137-145) L 04/28/19 04:50 Potassium 4.0 mmol/L (3.6-5.0) 04/28/19 04:50 Chloride 95 mmol/L (98-107) L 04/28/19 04:50 Carbon Dioxide 24 mmol/L (22-30) 04/28/19 04:50 Anion Gap 10 (5-19) 04/28/19 04:50 BUN 9 mg/dL (7-20) 04/28/19 04:50 Creatinine 0.45 mg/dL (0.52-1.25) L 04/28/19 04:50 Est GFR ( Amer) > 60 (>60) 04/28/19 04:50 Est GFR (MDRD) Non-Af > 60 (>60) 04/28/19 04:50 Glucose 98 mg/dL (75-110) 04/28/19 04:50 Calcium 9.0 mg/dL (8.4-10.2) 04/28/19 04:50 Magnesium 2.3 mg/dL (1.6-2.3) 04/28/19 04:50 Total Bilirubin 0.6 mg/dL (0.2-1.3) 04/27/19 16:18 Direct Bilirubin 0.2 mg/dL (0.0-0.4) 04/27/19 16:18 Neonat Total Bilirubin Not Reportable 04/27/19 16:18 Neonat Direct Bilirubin Not Reportable 04/27/19 16:18 Neonat Indirect Bili Not Reportable 04/27/19 16:18 AST 22 U/L (14-36) 04/27/19 16:18 ALT 18 U/L (<35) 04/27/19 16:18 Alkaline Phosphatase 70 U/L (38-126) 04/27/19 16:18 Total Protein 7.4 g/dL (6.3-8.2) 04/27/19 16:18 Albumin 4.2 g/dL (3.5-5.0) 04/27/19 16:18 Impressions: Hand X-Ray 04/27/19 16:06 IMPRESSION: Dorsal hand soft tissue swelling without radiopaque foreign body. No acute osseous abnormality. Stroke Is this a Stroke Patient?: No Acute Heart Failure - Is this a Heart Failure Patient?: No
== END 2019-04-29 10:42 | disposition home or self-care (01) ==
LOC: ER 15:20 → EH 21:06 → 3S 23:39
PROVIDERS: ADMIT Emergency Medicine; ATTEND Emergency Medicine
DX: L03.114 Cellulitis of left upper limb (principal); I89.1 Lymphangitis; S61.452A Open bite of left hand, initial encounter; W54.0XXA Bitten by dog, initial encounter; E87.6 Hypokalemia; E87.1 Hypo-osmolality and hyponatremia; F41.0 Panic disorder [episodic paroxysmal anxiety]; F41.1 Generalized anxiety disorder; F34.1 Dysthymic disorder; J45.909 Unspecified asthma, uncomplicated; Z88.0 Allergy status to penicillin; Z88.2 Allergy status to sulfonamides; Z79.899 Other long term (current) drug therapy; Z79.51 Long term (current) use of inhaled steroids; Z20.3 Contact with and (suspected) exposure to rabies; Z29.14 Encounter for prophylactic rabies immune globulin
CPT/HCPCS: 99284; 96372; 90471; 96365; 96367; 36415 ×2; 87040; 83735; 85025 ×2; 87077; 80048; 80053; 87150 ×26; 73130; 90675; 90376; 94640 ×2; J1644; A9270 ×7; J3490 ×5; J0696; 87186; G0378

== ENCOUNTER → 2019-06-12 | Outpatient (CLI) | payer MEDICARE, OTHER ==
[2019-06-12 15:29] LABS: ABSOLUTE LYMPHOCYTES (AUTO) 1.5 10^3/uL (0.5-4.7); ABSOLUTE MONOCYTES (AUTO) 0.5 10^3/uL (0.1-1.4); ABSOLUTE NEUT (AUTO) 2.4 10^3/uL (1.7-8.2); BASOPHILS % (AUTO) 0.1 % (0-2); EOSINOPHILS % (AUTO) 0.3 % (0-6); HEMATOCRIT 38.2 % (36.0-47.0); HEMOGLOBIN 13.6 g/dL (12.0-15.5); LYMPHOCYTES % (AUTO) 33.9 % (13-45); MEAN CORPUSCULAR HEMOGLOBIN 32.6 pg (27.0-33.4); MEAN CORPUSCULAR HGB CONC 35.6 g/dL (32.0-36.0); MEAN CORPUSCULAR VOLUME 92 fl (80-97); MONOCYTES % (AUTO) 11.3 % (3-13); RED BLOOD COUNT 4.18 10^6/uL (3.72-5.28); RED CELL DISTRIBUTION WIDTH 12.9 % (11.5-14.0); SEGMENTED NEUTROPHILS % (AUTO) 54.4 % (42-78); TOTAL CELLS COUNTED % (AUTO) 100 %; WHITE BLOOD COUNT 4.4 10^3/uL (4.0-10.5)
[2019-06-12 16:28] LABS: PLATELET COUNT 317 10^3/uL (150-450)
[2019-06-12 16:55] LABS: ERYTHROCYTE SEDIMENTATION RATE 12 mm/hr (0-30)
== END ==
LOC: OD 14:46
PROVIDERS: ATTEND Orthopaedic Surgery
DX: T14.8XXA Other injury of unspecified body region, initial encounter (principal); W54.0XXA Bitten by dog, initial encounter
CPT/HCPCS: 36415; 85025; 85652; 86141

== ENCOUNTER 2019-08-13 17:05 | Emergency (ER) | payer MEDICARE, OTHER ==
[2019-08-13] MEDS ORDERED: LIDOCAINE 4%/TETRACAINE 0.5%/EPI 0.18% 5 ML TOPICAL SOLN TOP ONE (18:06)
--- NOTE | 2019-08-13 18:08 | ER Document Report ---
ED Medical Screen (RME) - General Chief Complaint: Leg Injury Stated Complaint: LEG INJURY Time Seen by Provider: 08/13/19 18:01 Primary Care Provider: ANGELINE FIELD DO [Primary Care Provider] - Follow up as needed Mode of Arrival: Ambulatory Information source: Patient Notes: HPI; 68-year-old female presents to the emergency room with a skin tear, pain, and swelling to her left tib-fib. Patient unsure how she injured it. States she got up in the middle of the night to go the bathroom when she got up in the morning she noticed injury. Increasing pain and swelling throughout the day. Tetanus is up-to-date. PE: Left davis with a 4 cm skin tear. Bleeding is controlled. There is tenderness on palpation to the mid davis. Positive left pedal pulse. Capillary refill less than 3 seconds. I have greeted and performed a rapid initial assessment of this patient. A comprehensive ED assessment and evaluation of the patient, analysis of test results and completion of the medical decision making process will be conducted by additional ED providers. I have specifically instructed the patient or family members with the patient to immediately return to any nursing staff should anything change in the patient's condition or with their chief complaint. TRAVEL OUTSIDE OF THE [place] IN LAST 30 DAYS: No - Related Data Allergies/Adverse Reactions: amoxicillin [Amoxicillin] Allergy (Verified 04/27/19 16:21) Hives Sulfa (Sulfonamide Antibiotics) Allergy (Verified 07/02/18 14:11) Home Medications: depression and anxiety medications Past Medical History - Past Medical History Cardiac Medical History: Denies: Hx Atrial Fibrillation, Hx Congestive Heart Failure, Hx Coronary Artery Disease, Hx DVT, Hx Heart Attack, Hx Hypercholesterolemia, Hx Hypertension, Hx Peripheral Vascular Disease, Hx Pulmonary Embolism Pulmonary Medical History: Reports: Hx Asthma, Hx Bronchitis Denies: Hx COPD, Hx Pneumonia, Hx Respiratory Failure Neurological Medical History: Denies: Hx Seizures Endocrine Medical History: Denies: Hx Diabetes Mellitus Type 1, Hx Diabetes Mellitus Type 2, Hx Hyperthyroidism, Hx Hypothyroidism Renal/ Medical History: Denies: Hx Peritoneal Dialysis GI Medical History: Denies: Hx Cirrhosis, Hx Crohn's Disease, Hx Gastroesophageal Reflux Disease, Hx Hepatitis, Hx Ulcerative Colitis Musculoskeltal Medical History: Denies Hx Arthritis, Denies Hx Gout Skin Medical History: Denies Hx Eczema, Denies Hx Psoriasis Psychiatric Medical History: Reports: Hx Anxiety, Hx Depression Infectious Medical History: Denies: Hx Hepatitis Past Surgical History: Reports: Hx Abdominal Surgery, Hx Hysterectomy, Other - Abdominal surgery - Immunizations Immunizations up to date: Yes Hx Diphtheria, Pertussis, Tetanus Vaccination: Yes Physical Exam - Vital signs Vitals: Temp Pulse Resp BP Pulse Ox 98.4 F 101 H 16 114/61 97 08/13/19 17:16 08/13/19 17:16 08/13/19 17:16 08/13/19 17:16 08/13/19 17:16 Course - Vital Signs Vital signs: Temp Pulse Resp BP Pulse Ox 98.4 F 101 H 16 114/61 97 08/13/19 18:00 08/13/19 17:16 08/13/19 17:16 08/13/19 17:16 08/13/19 17:16 Doctor's Discharge - Discharge Referrals: ANGELINE FIELD DO [Primary Care Provider] - Follow up as needed
--- NOTE | 2019-08-13 18:47 | RADIOLOGY REPORT (SQ) ---
EXAM DESCRIPTION: TIBIA FIBULA LEFT IMAGES COMPLETED DATE/TIME: 08/13/2019 6:35 pm REASON FOR STUDY: pain/injury COMPARISON: None. NUMBER OF VIEWS: Two views. TECHNIQUE: Two radiographic images acquired of the left tibia and fibula to include the knee and ank le in at least one projection. LIMITATIONS: None. FINDINGS: MINERALIZATION: Normal. BONES: No acute fracture or dislocation. No worrisome bone lesions. SOFT TISSUES: There appears to be a soft tissue injury in the lateral aspect of the calf. OTHER: No other significant finding. IMPRESSION: No acute osseous finding. TECHNICAL DOCUMENTATION: JOB ID: [id number] 2010 [employer]- All Rights Reserved Reading location - IP/workstation name: [email or web address]
[2019-08-13] MEDS ORDERED: LIDOCAINE 1%/EPINEPHRINE INJ 20 ML VIAL INJ ONE (22:01)
--- NOTE | 2019-08-13 22:07 | ER Document Report ---
ED Extremity Problem, Lower - General Chief Complaint: Leg Injury Stated Complaint: LEG INJURY Time Seen by Provider: 08/13/19 18:01 Primary Care Provider: MASON SHANNON DO [Primary Care Provider] - 08/15/19 Mode of Arrival: Ambulatory Notes: Patient is a 68-year-old female who presents to the emergency department with a chief complaint of a anterior lower leg injury. Patient states that she is unaware of what happened. She states that she woke up in the middle of the night, but cannot remember what exactly happened. She has a laceration to her left davis. Patient denies any blood thinner use. She is up-to-date on her tetanus vaccine. TRAVEL OUTSIDE OF THE [place] IN LAST 30 DAYS: No - Related Data Allergies/Adverse Reactions: amoxicillin [Amoxicillin] Allergy (Verified 04/27/19 16:21) Hives Sulfa (Sulfonamide Antibiotics) Allergy (Verified 07/02/18 14:11) Home Medications: depression and anxiety medications Past Medical History - General Information source: Patient - Social History Smoking Status: Never Smoker Family History: denies: CAD, DM, Hypertension, Malignancy Patient has homicidal ideation: No - Past Medical History Cardiac Medical History: Denies: Hx Atrial Fibrillation, Hx Congestive Heart Failure, Hx Coronary Artery Disease, Hx DVT, Hx Heart Attack, Hx Hypercholesterolemia, Hx Hypertension, Hx Peripheral Vascular Disease, Hx Pulmonary Embolism Pulmonary Medical History: Reports: Hx Asthma, Hx Bronchitis Denies: Hx COPD, Hx Pneumonia, Hx Respiratory Failure Neurological Medical History: Denies: Hx Seizures Endocrine Medical History: Denies: Hx Diabetes Mellitus Type 1, Hx Diabetes Me llitus Type 2, Hx Hyperthyroidism, Hx Hypothyroidism Renal/ Medical History: Denies: Hx Peritoneal Dialysis GI Medical History: Denies: Hx Cirrhosis, Hx Crohn's Disease, Hx Gastroesophageal Reflux Disease, Hx Hepatitis, Hx Ulcerative Colitis Musculoskeletal Medical History: Denies Hx Arthritis, Denies Hx Gout Skin Medical History: Denies Hx Eczema, Denies Hx Psoriasis Psychiatric Medical History: Reports: Hx Anxiety, Hx Depression Infectious Medical History: Denies: Hx Hepatitis Past Surgical History: Reports: Hx Abdominal Surgery, Hx Hysterectomy, Other - Abdominal surgery - Immunizations Immunizations up to date: Yes Hx Diphtheria, Pertussis, Tetanus Vaccination: Yes Review of Systems - Review of Systems Notes: REVIEW OF SYSTEMS: CONSTITUTIONAL : Denies recent illness. Denies recent unintentional weight loss. Denies fever, chills, or sweats. EENT: Denies eye, ear, throat, or mouth pain, discharge, or symptoms. Denies nasal or sinus congestion. CARDIOVASCULAR: Denies chest pain. RESPIRATORY: Denies shortness of breath, cough, congestion, difficulty breathing, or wheezing. GASTROINTESTINAL: Denies nausea, vomiting, and diarrhea. Denies abdominal pain. Denies constipation. GENITOURINARY: Denies difficulty urinating, burning, blood in urine, urgency or frequency. MUSCULOSKELETAL: Denies neck and back pain. See HPI. SKIN: See HPI. HEMATOLOGIC : Denies easy bruising or bleeding. LYMPHATIC: Denies swollen, painful, enlarged glands. NEUROLOGICAL: Denies no numbness or tingling denies weakness. Denies headache. Denies altered mental status. Denies alteration in speech. PSYCHIATRIC: Denies stress, anxiety, alteration in sleep patterns, or depres arden. All other systems reviewed and negative. Physical Exam - Vital signs Vitals: Temp Pulse Resp BP Pulse Ox 98.4 F 101 H 16 114/61 97 08/13/19 17:16 08/13/19 17:16 08/13/19 17:16 08/13/19 17:16 08/13/19 17:16 - Notes Notes: PHYSICAL EXAMINATION: GENERAL: Appears well, healthy, well-nourished, no acute distress. HEAD: Normocephalic, atraumatic. EYES: PERRL, conjunctiva normal, all extraocular movements intact, sclera nonicteric ENT: Moist mucous membranes. NECK: Supple, no noticeable swelling, redness, rash. Normal range of motion. LUNGS: Equal breath sounds bilaterally and clear to auscultation. No wheezes rales or rhonchi. CARDIOVASCULAR: S1-S2, regular rate, regular rhythm. Radial pulses 2+, normal. ABDOMEN: Normoactive bowel sounds. Soft, nontender, no guarding, no rebound tenderness, and no masses palpated. EXTREMITIES: Normal strength and range of motion, no pitting or edema. No cyanosis. NEUROLOGICAL: Moves all extremities upon command. Strength 5/5 in all extremities. PSYCH: Normal mood, normal affect. SKIN: Warm, dry. Irregular laceration noted to left davis. Course - Re-evaluation Re-evalutation: 08/13/19 22:43 Patient's laceration was very jagged and irregular. I placed 4 sutures to approximate the wound, but was not able to completely close the wound due to the patient's lack of the lacks the city and her skin. She also had a piece of skin that did not have normal blood flow. That this was removed. Xeroform will be placed to the area. She will follow-up with her primary care provider. Patient is to continue her Keflex. Follow-up precautions were given. Verbal discharge instructions were given to the patient. They verbalized understanding. They are stable for discharge. - Vital Signs Vital signs: Temp Pulse Resp BP Pulse Ox 98.2 F 75 14 118/73 97 08/13/19 23:42 08/13/19 23:42 08/13/19 23:42 08/13/19 23:42 08/13/19 23:42 Procedures - Laceration/Wound Repair Left anterior davis Wound length (cm): 4 Wound's Depth, Shape: Irregular, Flap, Other - irregular flap/laceration and skin tear Laceration pre-procedure: Sterile PPE donned, Sterile drapes applied, Shur-Clens applied Anesthetic type: 1% Lidocaine w/epi Volume Anesthetic (mLs): 10 Wound explored: Clean, No foreign body removed Irrigated w/ Saline (mLs): 200 Wound Repaired With: Sutures Suture Size/Type: 4:0, Prolene Number of Sutures: 4 Post-procedure wound care: Sterile dressing applied - xeroform, Splint applied - crutches Post-procedure NV exam normal: Yes Complications: No Adult Front & Back picture: 1 - laceration/skin tear/flap Discharge - Discharge Clinical Impression: Laceration of left leg Qualifiers: Encounter type: initial encounter Qualified Code(s): S81.812A - Laceration without foreign body, left lower leg, initial encounter Condition: Stable Disposition: HOME, SELF-CARE Instructions: Antibiotic Ointment Protection ([facility]), Laceration Care ([facility]) Additional Instructions: Please return to your primary doctor, in 2 days for a wound check. Return im mediately if you develop spreading redness around the wound, pus from the wound, worsening pain, or a fever of >100.4. Keep the area clean and dry. Wash gently with soap and water twice daily and cover with antibiotic ointment. Tomorrow you can put a new Xeroform (yellow) dressing on the area. Use crutches as needed. Continue Keflex. Referrals: MASON SHANNON DO [Primary Care Provider] - 08/15/19
[2019-08-13 23:42] VITALS: BP 118/73
== END 2019-08-13 23:42 | disposition home or self-care (01) ==
LOC: ER 17:05
DX: S81.812A Laceration without foreign body, left lower leg, initial encounter (principal); X58.XXXA Exposure to other specified factors, initial encounter; J45.909 Unspecified asthma, uncomplicated; F41.9 Anxiety disorder, unspecified; F32.9 Major depressive disorder, single episode, unspecified; Z79.899 Other long term (current) drug therapy; Z88.0 Allergy status to penicillin; Z88.2 Allergy status to sulfonamides
CPT/HCPCS: 99283; 73590; 12002; J3490

== ENCOUNTER → 2020-03-12 | Outpatient (CLI) | payer MEDICARE, OTHER ==
[~2020-03-12] MED LIST: COVID-19 VACCINE (PFIZER)/PF 30 MCG/0.3 ML VIAL IM ONE; EPINEPHRINE INJ/PF 1 MG/1 ML AMPULE IM PRN
== END ==
LOC: EMPHEALTH 09:56
PROVIDERS: ATTEND Internal Medicine
DX: Z23 Encounter for immunization (principal)
CPT/HCPCS: 91300

== ENCOUNTER → 2020-04-01 | Outpatient (CLI) | payer MEDICARE, OTHER | LOC: EMPHEALTH 13:35 | PROVIDERS: ATTEND Internal Medicine | DX: Z23 Encounter for immunization (principal) | CPT/HCPCS: 91300 ==